=== PATIENT | female | born 1950 | race Caucasian/White ===

== ENCOUNTER 2017-03-14 10:41 | Day surgery (SDC) | payer MEDICARE, BC ==
[~2017-03-14 10:41] MED LIST: LIDOCAINE HCL 1% MPF SOL ONE; PROPOFOL 500 MG/50 ML EMU IV ONE
[2017-03-14 14:41] VITALS: BP 151/46; PULSE 72; RESP 16; TEMP 97.6; O2SAT 98
== END 2017-03-14 15:10 | disposition home or self-care (01) | DRG 951 ==
LOC: SURG 10:41
PROVIDERS: ATTEND Surgery
DX: Z12.11 Encounter for screening for malignant neoplasm of colon (principal); K57.30 Diverticulosis of large intestine without perforation or abscess without bleeding; Z86.010 Personal history of colon polyps
CPT/HCPCS: J2001; J2704